=== PATIENT | female | born 1965 | race Caucasian/White ===

== ENCOUNTER 2021-10-07 10:14 | Outpatient (REF) | payer OTHER, SELFPAY ==
--- NOTE | ~2021-10-07 | XR_ITS ---
EXAMINATION: XR BILATERAL ELBOW XR SKULL AND CERVICAL SPINE CLINICAL INFORMATION: Headache. Elbow pain. Neck pain. COMPARISON: None TECHNIQUE: 3 views each elbow. Cervical spine 3 views and skull 5 views. FINDINGS: Right elbow: There is a small loose body along the anterior joint space. There is a small avulsion fracture fragment medial epicondyle. Mild spurring is seen along the lateral epicondyle no acute fracture seen. There is mildly prominent anterior fat pad sign. Left elbow: There is no visible acute fracture, dislocation or loose body seen. There is no abnormal joint effusion. Cervical spine: There is normal cervical lordosis. The vertebral heights, alignment and disc heights are normal. No visible acute fracture, dislocation or lytic process seen. The prevertebral soft tissues are normal. Skull: Multiple views of skull reveal a normal appearing calvarium with no lytic or sclerotic process. There is mild hyperostosis along the inner table and the frontoparietal bone. The paranasal sinuses are well aerated. The bony orbits are symmetrical and normal. No fracture identified. XR/XR elbow LT min 3V IMPRESSION: Mild spurring along the lateral epicondyle and small avulsion fragment medial epicondyle and a loose body right elbow. No acute fractures seen. Unremarkable left elbow exam. Unremarkable cervical spine exam. Unremarkable skull exam.
--- NOTE | ~2021-10-07 | XR_ITS ---
EXAMINATION: XR BILATERAL ELBOW XR SKULL AND CERVICAL SPINE CLINICAL INFORMATION: Headache. Elbow pain. Neck pain. COMPARISON: None TECHNIQUE: 3 views each elbow. Cervical spine 3 views and skull 5 views. FINDINGS: Right elbow: There is a small loose body along the anterior joint space. There is a small avulsion fracture fragment medial epicondyle. Mild spurring is seen along the lateral epicondyle no acute fracture seen. There is mildly prominent anterior fat pad sign. Left elbow: There is no visible acute fracture, dislocation or loose body seen. There is no abnormal joint effusion. Cervical spine: There is normal cervical lordosis. The vertebral heights, alignment and disc heights are normal. No visible acute fracture, dislocation or lytic process seen. The prevertebral soft tissues are normal. Skull: Multiple views of skull reveal a normal appearing calvarium with no lytic or sclerotic process. There is mild hyperostosis along the inner table and the frontoparietal bone. The paranasal sinuses are well aerated. The bony orbits are symmetrical and normal. No fracture identified. XR/XR skull min 4V IMPRESSION: Mild spurring along the lateral epicondyle and small avulsion fragment medial epicondyle and a loose body right elbow. No acute fractures seen. Unremarkable left elbow exam. Unremarkable cervical spine exam. Unremarkable skull exam.
--- NOTE | ~2021-10-07 | XR_ITS ---
EXAMINATION: XR BILATERAL ELBOW XR SKULL AND CERVICAL SPINE CLINICAL INFORMATION: Headache. Elbow pain. Neck pain. COMPARISON: None TECHNIQUE: 3 views each elbow. Cervical spine 3 views and skull 5 views. FINDINGS: Right elbow: There is a small loose body along the anterior joint space. There is a small avulsion fracture fragment medial epicondyle. Mild spurring is seen along the lateral epicondyle no acute fracture seen. There is mildly prominent anterior fat pad sign. Left elbow: There is no visible acute fracture, dislocation or loose body seen. There is no abnormal joint effusion. Cervical spine: There is normal cervical lordosis. The vertebral heights, alignment and disc heights are normal. No visible acute fracture, dislocation or lytic process seen. The prevertebral soft tissues are normal. Skull: Multiple views of skull reveal a normal appearing calvarium with no lytic or sclerotic process. There is mild hyperostosis along the inner table and the frontoparietal bone. The paranasal sinuses are well aerated. The bony orbits are symmetrical and normal. No fracture identified. XR/XR cervical spine 3V IMPRESSION: Mild spurring along the lateral epicondyle and small avulsion fragment medial epicondyle and a loose body right elbow. No acute fractures seen. Unremarkable left elbow exam. Unremarkable cervical spine exam. Unremarkable skull exam.
--- NOTE | ~2021-10-07 | XR_ITS ---
EXAMINATION: XR BILATERAL ELBOW XR SKULL AND CERVICAL SPINE CLINICAL INFORMATION: Headache. Elbow pain. Neck pain. COMPARISON: None TECHNIQUE: 3 views each elbow. Cervical spine 3 views and skull 5 views. FINDINGS: Right elbow: There is a small loose body along the anterior joint space. There is a small avulsion fracture fragment medial epicondyle. Mild spurring is seen along the lateral epicondyle no acute fracture seen. There is mildly prominent anterior fat pad sign. Left elbow: There is no visible acute fracture, dislocation or loose body seen. There is no abnormal joint effusion. Cervical spine: There is normal cervical lordosis. The vertebral heights, alignment and disc heights are normal. No visible acute fracture, dislocation or lytic process seen. The prevertebral soft tissues are normal. Skull: Multiple views of skull reveal a normal appearing calvarium with no lytic or sclerotic process. There is mild hyperostosis along the inner table and the frontoparietal bone. The paranasal sinuses are well aerated. The bony orbits are symmetrical and normal. No fracture identified. XR/XR elbow RT min 3V IMPRESSION: Mild spurring along the lateral epicondyle and small avulsion fragment medial epicondyle and a loose body right elbow. No acute fractures seen. Unremarkable left elbow exam. Unremarkable cervical spine exam. Unremarkable skull exam.
[2021-10-07 10:56] LABS: MANUAL DIFF FLAG NO
[2021-10-07 11:07] LABS: Appearance Urine CLEAR; Color Urine YELLOW; Glucose Urine UA NEG (NEG); Leukocyte Esterase Urine NEG (NEG); Nitrite Urine NEG (NEG); PH 5.5 (5.0-8.0); Specific Gravity - Urine >= 1.030 (1.005-1.025); UACC Culture Trigger NO; Urine Blood TRACE (NEG); Urine Ketones NEG (NEG); Urine Protein NEG (NEG-TRACE)
[2021-10-07 11:07] LABS: Basophils Percent Auto 0.3 % (0-2); Eosinophils Absolute Auto 0.1 X10*3/uL (0.0-0.4); Eosinophils Percent Auto 1.5 % (0-4); Hematocrit 40.9 % (37.0-47.0); Hemoglobin 13.3 g/dl (12.0-16.0); Imm Gran Abs Auto 0.02 X10*3/uL (0.00-0.03); Imm Gran Pct Auto 0.2 % (0.0-0.4); Lymphocytes Absolute Auto 2.4 X10*3/uL (1.2-4.9); Lymphocytes Percent Auto 27.5 % (20-40); Mean Corpuscular HGB Conc 32.5 g/dl (31.0-35.0); Mean Corpuscular Hemoglobin 29.4 pg (27.0-33.0); Mean Corpuscular Volume 90.3 fL (80.0-98.0); Mean Platelet Volume 9.4 fL (9.4-12.3); Monocytes Absolute Auto 0.9 X10*3/uL (0.1-1.2); Monocytes Percent Auto 10.4 % (2-11); Neutrophils Absolute Auto 5.3 x10*3/uL (2.0-8.3); Neutrophils Percent Auto 60.1 % (45-73); Platelet Count 459 X10*3/uL (160-400); Red Blood Count 4.53 X10*6/uL (4.20-5.50); Red Cell Distribution Width 13.8 % (11.0-16.0); White Blood Count 8.9 X10*3/uL (4.8-10.8)
[2021-10-07 11:24] LABS: Bacteria Urine TRACE /LPF; Mucus Urine TRACE /LPF; RBC Urine 0-2 /HPF (0); Squamous Epithelial Cell Urine TRACE /LPF; WBC Urine 0 /HPF (0-4)
[2021-10-07 11:27] LABS: Alanine Aminotransferase 18 U/L (0-31); Albumin Level 4.3 g/dL (3.5-5.0); Alkaline Phosphatase 148 U/L (39-117); Anion Gap 11 (12-20); Aspartate Amino Transferase 21 U/L (5-31); Bilirubin Total 0.6 mg/dL (0.0-1.0); Blood Urea Nitrogen 14 mg/dL (9-16); Carbon Dioxide 27 mmol/L (22-29); Chloride 107 mmol/L (96-108); Cholesterol 198 mg/dL; Estimated Glomerular Filt Rate > 60; Glucose Fasting 94 mg/dL (60-99); HDL Cholesterol 37 mg/dL; LDL Cholesterol Calculated 129 mg/dl; Potassium 4.1 mmol/L (3.3-5.1); Sodium 141 mmol/L (135-145); Total Protein 8.4 g/dL (6.5-8.0); Triglycerides 163 mg/dL
[2021-10-07 11:47] LABS: TSH reflex Free T4 0.93 uIU/mL (0.32-4.0); Vitamin D 25-OH Total 21.3 ng/mL (>30)
== END 2021-10-07 10:15 | disposition home or self-care (01) ==
LOC: HO.LAB 10:14
PROVIDERS: PCP Internal Medicine; Visit Provider Internal Medicine
DX: Z00.00 Encounter for general adult medical examination without abnormal findings (principal); M25.521 Pain in right elbow; M25.522 Pain in left elbow; M54.2 Cervicalgia; E55.9 Vitamin D deficiency, unspecified; R51.9 Headache, unspecified; Z91.81 History of falling
CPT/HCPCS: 36415; 70260; 72040; 73080; 80053; 80061; 81001; 82306; 84443; 85025

== ENCOUNTER 2022-08-08 16:46 | Outpatient (REF) | payer OTHER, SELFPAY ==
[2022-08-08 17:39] LABS: Influenza A PCR NEGATIVE (Negative); Influenza B PCR NEGATIVE (Negative); Resp Syncy Virus RNA Qual PCR NEGATIVE (Negative); SARS COV2 PCR INHOUSE NEGATIVE (Negative)
== END 2022-08-08 16:47 | disposition home or self-care (01) ==
LOC: HO.LNP 16:46
PROVIDERS: Visit Provider Internal Medicine
DX: Z20.822 Contact with and (suspected) exposure to COVID-19 (principal); R43.9 Unspecified disturbances of smell and taste
CPT/HCPCS: 0241U

== ENCOUNTER → 2023-10-18 13:53 | Outpatient (BNVA) | payer OTHER, SELFPAY | PROVIDERS: PCP Internal Medicine; Visit Provider Physician Assistant | DX: S39.012A Strain of muscle, fascia and tendon of lower back, initial encounter (principal); X50.1XXA Overexertion from prolonged static or awkward postures, initial encounter | CPT/HCPCS: 99203 ==

== ENCOUNTER → 2023-11-01 14:17 | Outpatient (BNVA) | payer OTHER, SELFPAY | PROVIDERS: PCP Internal Medicine; Visit Provider Physician Assistant | DX: S39.012D Strain of muscle, fascia and tendon of lower back, subsequent encounter (principal); X50.1XXD Overexertion from prolonged static or awkward postures, subsequent encounter | CPT/HCPCS: 99213 ==

== ENCOUNTER → 2023-11-22 14:20 | Outpatient (BNVA) | payer OTHER, SELFPAY | PROVIDERS: PCP Internal Medicine; Visit Provider Physician Assistant | DX: S39.012D Strain of muscle, fascia and tendon of lower back, subsequent encounter (principal); X50.1XXD Overexertion from prolonged static or awkward postures, subsequent encounter | CPT/HCPCS: 99214 ==

== ENCOUNTER 2024-01-06 14:00 | Outpatient (RCR) | payer OTHER, SELFPAY ==
--- NOTE | 2023-12-03 15:19 | MHC.PT.EP ---
[facility] [place] Office [place] Office [place] Office [address] Joanne Brasher [address] [phone] F: [phone] F: [phone] F: [phone] F: [phone] Physical Therapy Plan of Care Date of Evaluation: 12/03/23 Date of Surgery: Diagnosis: LUMBAR STRAIN Assessment: 58 YO FEMALE REF TO PT FOR A LUMBAR STRAIN INITIATED WITH TRUNK TWISTING AND THEN EXACERBATED W LIFTING A BOX OVERHEAD- SHE WORKS 30 HRS A WK A [employer]. THE Pt HAS DECR TRUNK AROM AND (+) STRENGTH AND FLEXIBILITY DEFICITS IN HER HIPS- THE Pt HAS (+) LUMBOPELVIC ASYMM AND WEAK ABDOMINAL/GLUTE COMPLEX-> HABITUAL LUMBAR HYPERLORDOSIS. SHE IS CURRENTLY LIMITED W PROLONGEDSTANDING, WALKING, SITTING. HER PAIN IS MARK L/S AND INTERM SORENESS IN Lt LAT THIGH. SHE WOULD BENEFIT FROM PT TO ADDRESS THE ABOVE FINDINGS. Frequency and Duration: The patient will be seen 2 x WK x 4 WKS Short Term Goals: *DECR LBP TO 2-3/10 *INITIATE HEP->HIP FLEXIB, LUMBOPELVIC STAB *Pt INDEP SELF CORRECT POSTURE/ BODY MECH [employer]er Goals: *Pt INDEP W HEP AND SELF SX MGMT TECHN *Pt RESUME REG ADLs EVIDENT W IMPROVED OSWESTRY *Pt DEMON PROPER BODY MECH/ SQUATS W 3:3 SIMUL ADLs Treatment Plan: Modalities to reduce pain, spasms and effusion. Manual therapy to restore motion and function. Therapeutic exercise to improve strength and flexibility. Neuromuscular re-education for posture and balance. Therapeutic activities to return to functional activities of daily living. Electronically signed by: JORDEN ORTIZ,PT Please sign and return to therapist. Thank you for your referral.
--- NOTE | 2024-01-14 10:31 | MHC.PT.DC ---
[facility] [place] Office [place] Office [place] Office [address] Joanne Brasher [address] [phone] F: [phone] F: [phone] F: [phone] F: [phone] Physical Therapy Discharge Report Diagnosis: LUMBAR STRAIN Date of Surgery: Date of Evaluation: 12/03/23 Date of Discharge: 01/14/24 Treatments to Date: 8 Cancellations to Date: 0 No Shows to Date: 0 Discharge Status: Achieved Goals Improved Function Independent with HEP Discharge Summary: CIRO HAS BENEFITTED FROM HER PT COURSE EVIDENT IN RESOLVED LBP WELL INDEP RETURN TO REG ADLs. SHE IS INDEP W HER THOROUGH HEP. SHE IS D/C THIS DATE W HER HEP, HAVING MET HER PT GOALS AT THIS TIME. Electronically signed by: JORDEN ORTIZ,PT Please sign and return to therapist. Thank you for your referral.
== END 2024-01-14 10:32 | disposition home or self-care (01) ==
LOC: HO.PT 14:00
PROVIDERS: PCP Internal Medicine; Visit Provider Internal Medicine
DX: S39.012D Strain of muscle, fascia and tendon of lower back, subsequent encounter (principal)
CPT/HCPCS: 97110; 97161; 97530

== ENCOUNTER → 2024-01-22 14:18 | Outpatient (BNVA) | payer OTHER, SELFPAY | PROVIDERS: PCP Internal Medicine; Visit Provider Physician Assistant | DX: S39.012D Strain of muscle, fascia and tendon of lower back, subsequent encounter (principal); X50.1XXD Overexertion from prolonged static or awkward postures, subsequent encounter | CPT/HCPCS: 99213 ==

== ENCOUNTER 2025-07-07 11:50 | Outpatient (REF) | payer OTHER, SELFPAY ==
[2025-07-07 19:58] LABS: Resp Syncy Virus RNA Qual PCR NEGATIVE (Negative); SARS COV2 PCR INHOUSE NEGATIVE (Negative)
== END 2025-07-07 11:51 | disposition home or self-care (01) ==
LOC: HO.LNP 11:50
PROVIDERS: PCP Internal Medicine; Visit Provider Physician Assistant
DX: Z03.818 Encounter for observation for suspected exposure to other biological agents ruled out (principal)
CPT/HCPCS: 87637; 87880

== ENCOUNTER 2025-07-07 11:50 | Outpatient (AMB) | payer OTHER, SELFPAY ==
--- NOTE | 2025-07-07 11:52 | AM.OFFWIN_ITS ---
Intake Vital Signs 07/07/25 12:08 Height 5 ft Weight 160 lb BMI 31.2 BP 130/72 Blood Pressure Location Lt brachial Position Sitting Respiration 16 Pulse 91 Pulse Source Pulse Oximeter Temp 98.4 F Temp Source Oral Pulse Oximetry (%) 97 Oxygen Delivery Method Room Air Intake Visit Reasons: EP -Body Aches, Sinus Pain/pressure Intake Note: EP complains of sore throat, cough, headache, and she feels pressure and pain over the face, left ear and teeth since last night. Patient Tobacco Use Status: Former Tobacco user Allergies tree and shrub pollen Allergy (Severe, Verified 07/07/25 12:20) Itchy Eyes dog dander Allergy (Verified 07/07/25 12:20) headache shramp Adverse Reaction (Severe, Uncoded 07/07/25 12:20) heart burn tomato seed Adverse Reaction (Intermediate, Uncoded 07/07/25 12:20) Heartburn Do you need a note to return to daycare/school/sports/work: Yes HPI HPI Comments History of Present Illness Details History - The patient is a 60 year old female pr esenting with symptoms of an upper respiratory infection. - Symptoms began yesterday with diffuse body aches, and this morning she developed a headache which has progressively worsened, despite taking Tylenol. - She also reports developing a sore thr oat, sinus pain, and a slight cough. - Associated symptoms include nasal blee ding, which occurred after wiping her nose, and left ear pain. - She denies any known fevers, wheezing, or shortness of breath. - The patient has a history of sinus inf ections and bronchitis, for which she has used an inhaler in the past. She denies a hx of asthma or COPD. - She also notes a history of ear issues as a child but not as an adult, though her ears are sensitive during plane travel. - She typically uses Flonase, but has ru n out. - Regarding exposures, family members at home were previously sick but have recovered, and colleagues at her workplace have also been ill. Review of Systems - CONSTITUTIONAL: Denies fever. Reports myalgia. - HEENT: Reports worsening headache, sin us pain, sore throat, and epistaxis. R eports left-sided ear pain. - RESPIRATORY: Reports a slight cough. D enies wheezing or shortness of breath. All systems reviewed and are unremarkable except as noted in HPI Physical Exam General: Cooperative, healthy appearing, comfortable and no acute distress Orientation/consciousness: Patient oriented x3 Limitations: No limitations Head: Normal to inspection Ears: Hearing grossly normal bilaterally, external ears normal, EAC's normal bilaterally and TM's normal bilaterally Nose: Normal external nose present, Normal nares present and No nasal discharge present Face and sinus: Normal facial exam and frontal and maxillary sinuses tender bilaterally Mouth: Normal oral and palatal mucosa present and moist mucous membranes Throat: tonsils normal, no exudates, uvula midline, slight posterior oropharynx erythema Eyes: Appearance normal, both eyes and all related structures Neck: Normal visual inspection, full ROM Respiratory: Clear to auscultation bilaterally. Normal respiratory effort, able to speak in complete sentences, actively coughing, no respiratory distress, not tachypneic, no tripod positioning and no use of accessory muscles Cardiovascular: Regular rate and rhythm. Normal S1 and S2 Skin: No rashes or lesions noted Neuro: Patient oriented x3 Extremities: Normal to inspection and Yes no clubbing, cyanosis or edema COUNT INCLUDES THE [facility] Medical History (Updated 11/06/22 @ 16:00 by Ramakrishna Benitez MD) Arthralgia Obesity (BMI 30-39.9) GERD (gastroesophageal reflux disease) Allergic rhinitis Anemia Surgical History Hx of colonoscopy (~10/13/18) History of tubal ligation History of section Family History Father Suicide Mother Dementia Colon cancer, Onset Age: 71 Diabetes mellitus Hypertension Other Mental health problem Social History Housing: House Alcohol intake: never Patient Tobacco Use Status: Former Tobacco user e-Cigarette/Vaping Use: Never Used Second Hand Smoke Exposure: Yes service: No Current occupational status: employed Physical Exam Vital Signs: Last Vital Signs Temp 98.4 F 07/07/25 12:08 Pulse 91 07/07/25 12:08 Resp 16 07/07/25 12:08 BP 130/72 07/07/25 12:08 Pulse Ox 97 07/07/25 12:08 Oxygen Delivery Method Room Air 12/17/25 12:08 BMI result Body Mass Index 31.2 Results AMB Rapid Strep AMB Rapid Strep Negative Last Edit by Yang Newell MA on 07/07/25 12:40 Assessment & Plan Assessment & Plan (1) Acute viral sinusitis: Code(s): J01.90 - Acute sinusitis, unspecified; B97.89 - Other viral agents as the cause of diseases classified elsewhere Plan: Plan Patient was informed and verbally consented to the use of an ambient scribe for clinic note documentation during this visit. - VSS, pt well appearing and PE remarkable for sinus tenderness. - strep negative - The patient's symptoms are consistent with a viral upper respiratory infection/sinusitis, with COVID-19 or similar virus being the most likely etiologies. - A nasal swab was collected for Flu, COVID-19, and RSV testing to determine the specific pathogen. - For pain and headache management, it was recommended to take Tylenol 1000 mg every 8 hours, which can be alternated with Motrin 600 mg every 6 hours. - To manage nasal symptoms, the plan includes using a Neti pot twice daily using distilled water, followed by Flonase spray. - A 90-day prescription for Flonase will be sent to the pharmacy. - Additionally, using an [id number] saline nasal spray and a humidifier at night was advised to alleviate nasal dryness and prevent epistaxis. - It was recommended to take a daily allergy pill, such as Zyrtec, to help reduce secretions. - The patient was provided with CDC recommendatios for the Common Cold including ER precautions and instructions for home care. - If symptoms progress to her chest, she should add a decongestant. - A work note will be provided for today, with the option to adjust it for tomorrow if she does not feel better. Orders: Orders SARS-CoV2/FLU/RSV Today R09.89 - Other specified symptoms and signs involving the circulatory and respiratory systems AMB Rapid Strep Screen Today Z13.9 - Encounter for screening, unspecified Coding Level of Care Code Est Pt Level 3 (19026) Diagnoses Acute viral sinusitis J01.90; B97.89
[2025-07-07 12:08] VITALS: BP 130/72; PULSE 91; RESP 16; TEMP 36.9; O2SAT 97; BMI 31.2
--- OUTSIDE RECORDS SUMMARY | 2025-07-07 15:44 | XMS_ITS | Clinical Summary ---
Author Organization [facility] ity Address [address] [place] [address] Care Team Providers Care Manager Heart Failure Name Role Phone Unavailable Primary Care Provider Unavailabl e Social History Tobacco Use Types Packs/Day Years Used Date Smoking Tobacco: Never Assessed Comments Unknown Sex and Gender Information Value Date Recorded Sex Assigned at Not on file Legal Sex Female 8:57 PM EST Gender Identity Not on file Sexual Orientation Not on file Plan of Treatment Health Maintenance Due Date Last Done Comments Breast Cancer Screening 1967 Colorectal Cancer Screening: Colonoscopy 1967 DTaP,Tdap,and Td Vaccines (1 - Tdap) 1986 Hepatitis B Vaccines (1 of 3 - 19+ 3-dose series) 1986 Cervical Cancer Screening: P ap Smear 01/12/1988 Pneumococcal Vaccine: 50+ Ye ars (1 of 1 - PCV) 2017 Zoster Vaccines (1 of 2) 2017 HIV Screening 08/16/2023 Hepatitis C Screening 08/16/2023 Social Influencers of Health Screening 08/16/2023 Depression Screening 07/22/2024 COVID-19 Vaccine (1 - 2024-2 6 season) 2025 Influenza Vaccine (#1) 2025 RSV Immunization Adult Patie nts (1 - 1-dose 75+ series) 2042 HIB Vaccines Aged Out No longer eligi ble based on patient's age to complete this topic HPV Vaccines Aged Out No longer eligi ble based on patient's age to complete this topic Hepatitis A Vaccines Aged Out No long er eligible based on patient's age to complete this topic IPV Vaccines Aged Out No longer eligi ble based on patient's age to complete this topic MMR Vaccines Aged Out No longer eligi ble based on patient's age to complete this topic Meningococcal ACWY Vaccine Aged Out N o longer eligible based on patient's age to complete this topic Meningococcal B Vaccine Aged Out No l onger eligible based on patient's age to complete this topic RSV Immunization Patients Un moustapha 20 months Aged Out No longer eligible b ased on patient's age to complete this topic Varicella Vaccines Aged Out No longer eligible based on patient's age to complete this topic
== END 2025-07-07 12:45 | disposition home or self-care (01) ==
LOC: HO.HMCWIS 11:50
PROVIDERS: PCP Internal Medicine; Visit Provider Physician Assistant
DX: J01.90 Acute sinusitis, unspecified (principal); B97.89 Other viral agents as the cause of diseases classified elsewhere; Z13.9 Encounter for screening, unspecified